=== PATIENT | male | born 2000 | race African-American/Black ===

== ENCOUNTER 2023-07-23 23:14 | Inpatient (IN) ==
[2023-07-24] MEDS: Lactated Ringers 1000 ml BAG 1,000 ML IV ONE ×2 (00:01→01:18)
[2023-07-24] MEDS: Ondansetron 4 mg VIAL 2 MG/ML 2 ml VIAL IV ONE (00:50)
[2023-07-24 00:57] LABS: ABS Lymphocytes 0.9 10^3/uL (1.0-4.8); ABS Monocytes 0.4 10^3/uL (0.0-1.1); ABS Neutrophils 9.2 10^3/uL (1.5-7.6); Hemoglobin 16.4 g/dL (13.2-16.3); Lymphocyte % 8.4 %; Mean Corpuscular Hemoglobin 31.7 pg (27-33); Mean Corpuscular Hgb Conc 33.4 g/dL (31-36); Mean Corpuscular Volume 94.9 fL (80-97); Mean Platelet Volume 8.9 fL (7.5-11.2); Platelet Count 216 10^3/uL (150-450); Red Blood Count 5.17 10^6/uL (4.06-5.63); Red Cell Distribution Width 13.7 % (12-17); White Blood Count 10.5 10^3/uL (3.6-10.2)
[2023-07-24 01:13] LABS: Urine Amorphous Crystals Present /HPF (Absent); Urine Appearance Clear; Urine Bacteria Absent /HPF (Absent); Urine Bilirubin Negative (Negative); Urine Blood 2+ (Negative); Urine Color Colorless; Urine Glucose 4+ (>=1000 mg/dL) (Negative); Urine Ketones 4+ (Negative); Urine Nitrite Negative (Negative); Urine Protein 1+ (>=30 mg/dL) (Negative); Urine Red Blood Cell Trace(0-2/hpf) /HPF (0-Trace); Urine Urobilinogen Negative (Negative); Urine White Blood Cell Trace(0-5/hpf) /HPF (0-Trace)
[2023-07-24 01:51] LABS: ALT 43 U/L (7-52); Albumin 5.3 g/dL (3.2-5.2); Albumin/Globulin Ratio 1.6 (1-3); Alkaline Phosphatase 75 U/L (35-149); Blood Urea Nitrogen 20 mg/dL (6-24); C Reactive Protein 1.72 mg/L (<8.01); CO2 Carbon Dioxide 8 mmol/L (22-32); Calcium 10.4 mg/dL (8.6-10.3); Chloride 90 mmol/L (101-111); Creatinine, Serum 1.78 mg/dL (0.67-1.17); Globulin 3.3 g/dL (2-4); Glucose 433 mg/dL (70-100); Sodium 127 mmol/L (135-145); Total Bilirubin 0.7 mg/dL (0.2-1.0); Total Protein 8.6 g/dL (6.4-8.9); eGFR CKD-EPI 55.3 (>60)
[2023-07-24 01:52] LABS: Anion Gap 29 mmol/L (2-16)
[2023-07-24 02:28] LABS: Venous Bicarbonate HCO3 10.9 mmol/L (24-28)
[2023-07-24 03:06] LABS: Potassium Redraw 6.6 mmol/L (3.5-5.0)
[2023-07-24] MEDS ORDERED: Dextrose 50% Syringe 50 ml 25 GM/50 ML SYRINGE IV PUSH PRN (03:19)
[2023-07-24] MEDS ORDERED: Acetaminophen IV 1 GM/100ML 1,000 MG/100 ML BAG IV PRN (04:07)
[2023-07-24] MEDS: Insulin Infusion 100unit/100mL 100 UNIT/100 ML BAG IV SCH (04:35)
[2023-07-24] MEDS: NORMOSOL-R pH 7.4 1000 mL BAG 1,000 ML IV ONE (04:35)
[2023-07-24] MEDS: NORMOSOL-R pH 7.4 1000 mL BAG 1,000 ML IV SCH (05:31)
[2023-07-24] MEDS: D5W 1/2 NS 1000 ml BAG 1,000 ML IV SCH ×2 (05:38→07:15)
[2023-07-24 06:25] LABS: Creatinine, Serum 1.25 mg/dL (0.67-1.17); Magnesium 1.9 mg/dL (1.9-2.7); Potassium 4.1 mmol/L (3.5-5.0); eGFR CKD-EPI 84.5 (>60)
[2023-07-24 06:26] LABS: Calcium 9.1 mg/dL (8.6-10.3); Creatinine, Serum 1.26 mg/dL (0.67-1.17); Potassium 4.1 mmol/L (3.5-5.0); eGFR CKD-EPI 83.7 (>60)
[2023-07-24] MEDS: D5LR 1000 ml BAG 1,000 ML IV SCH (07:51)
[2023-07-24 11:30] LABS: Creatinine, Serum 1.16 mg/dL (0.67-1.17); Magnesium 1.8 mg/dL (1.9-2.7); Phosphorus 2.6 mg/dL (2.5-5.0); Potassium 3.7 mmol/L (3.5-5.0); eGFR CKD-EPI 92.5 (>60)
[2023-07-24] MEDS: Insulin GLARGINE 100 un/ml 10 ml VIAL SUBCUT SCH ×2 (12:22→21:02)
[2023-07-24] MEDS: Ondansetron 4 mg VIAL 2 MG/ML 2 ml VIAL IV PRN (15:10)
[2023-07-24 15:15] LABS: Calcium 8.5 mg/dL (8.6-10.3); Creatinine, Serum 1.19 mg/dL (0.67-1.17); Magnesium 1.7 mg/dL (1.9-2.7); Phosphorus 2.6 mg/dL (2.5-5.0); eGFR CKD-EPI 89.7 (>60)
[2023-07-24] MEDS: Magnesium Sulf 4 GM/100 ML IV 4,000 MG/100 ML BAG IVPB ONE (16:33)
[2023-07-24] MEDS ORDERED: Insulin GLARGINE 100 un/ml 10 ml VIAL SUBCUT SCH (21:00)
[2023-07-25 04:29] LABS: Hematocrit 38.2 % (38-53); Mean Corpuscular Hemoglobin 31.8 pg (27-33); Mean Corpuscular Hgb Conc 34.2 g/dL (31-36); Mean Corpuscular Volume 93.1 fL (80-97); Mean Platelet Volume 8.5 fL (7.5-11.2); Platelet Count 162 10^3/uL (150-450); Red Cell Distribution Width 13.2 % (12-17); White Blood Count 4.3 10^3/uL (3.6-10.2)
[2023-07-25 04:44] LABS: Calcium 8.6 mg/dL (8.6-10.3); Creatinine, Serum 0.97 mg/dL (0.67-1.17); HDL Cholesterol 58.1 mg/dL; Magnesium 1.8 mg/dL (1.9-2.7); Potassium 4.1 mmol/L (3.5-5.0); eGFR CKD-EPI 114.6 (>60)
[2023-07-25] MEDS: Magnesium Sulfate 2 gm BAG 2 GM/50 ML BAG IVPB ONE (07:30)
[2023-07-25 12:05] VITALS: BP 139/86
[2023-07-25] MEDS ORDERED: Insulin LISPRO FOR INSULIN PUMP SUBCUT SCH (14:00)
[2023-07-26] MEDS ORDERED: Influenza vaccine *QUAD* *2023-24* 0.5 ML SYRINGE IM ONE (09:00)
== END 2023-07-25 13:30 | disposition home or self-care (01) | DRG 917 ==
LOC: ED 23:14 → EDHOLD 07-24 03:03 → SUATTDRO 07-24 03:03 → ICU 07-24 03:16
PROVIDERS: ADMIT Internal Medicine; ATTEND Internal Medicine Critical Care Medicine